=== PATIENT | female | born 1995 | race Caucasian/White ===

== ENCOUNTER 2019-12-13 10:01 | Outpatient (CLI) | payer BC ==
--- NOTE | 2019-12-13 11:06 | CT ---
CT ANGIOGRAM OF BRAIN WITH AND WITHOUT CONTRAST: DATE: 12/13/2019 12:00 AM HISTORY: 24-year-old female with migraine headaches COMPARISON: None. TECHNIQUE: Noncontrast brain CT performed. Iodinated IV contrast injected. 100 cc of Isovue-370 Bolus chasing technique scan performed through the head. Coronal and sagittal 3-D MIP reconstructions. FINDINGS: NONCONTRAST CT OF BRAIN: Hemorrhage: None Ischemia/Infarction: None. Midline Shift: None. Hydrocephalus: None. Skull and Extracranial Soft tissues: Normal. CTA OF THE BRAIN: Right ICA: Patent. Right MCA: Patent. Right NICOLE: Patent. ACOM: Patent. Left ICA: Patent. Left MCA: Patent. Left NICOLE: Patent. PCOMs: Patent. Vertebral arteries: Patent. Basilar Artery: Patent. mud analysis supervisor: Patent. Incidentals: None. IMPRESSION: No hemodynamically significant stenosis, occlusion or aneurysmal dilation.
== END 2019-12-13 10:02 | disposition home or self-care (01) ==
LOC: SCSCT 10:01
PROVIDERS: ATTEND Nurse Practitioner Acute Care
DX: G43.909 Migraine, unspecified, not intractable, without status migrainosus (principal)
CPT/HCPCS: 70496